=== PATIENT | male | born 1980 | race Caucasian/White ===

== ENCOUNTER 2022-01-22 08:55 | Emergency (ER) | payer OTHER ==
[2022-01-22] MEDS ORDERED: Furosemide 100mg/10 ml Vial ONE (09:08)
[2022-01-22] MEDS ORDERED: Nitrostat 0.4 MG (ED) SL ONE (09:09)
--- NOTE | 2022-01-22 09:15 | ERPHSYRPT ---
- History of Present Illness Time Seen by Provider: 01/22/22 09:10 Source: patient Exam Limitations: no limitations Patient Subjective Stated Complaint: SOB Triage Nursing Assessment: Patient ambulated back to ED and transferred self to bed. Patient A+O X3. Patient's skin pink, warm and dry. Patient complains of SOB that has increased over the past month. Patient has dx of CHF. Lungs noted to be diminished throughout. Patient has 2+ pitting edema noted to BLE with redness noted. Patient complains of general discomfort 5/10. Physician History: 41 years old male with history of hypertension, hyperlipidemia, CHF presented to the ER with 2 weeks history of increasing shortness of breath and bilateral lower extremity swelling despite taking oral Lasix as recommended. Patient reports shortness of breath gets worse with minimal activity and now having shortness of breath even resting with chest tightness and pressure across. Minimal nonproductive cough. Legs feel very tight bilaterally with dull aching pain. Timing/Duration: week(s) (4), gradual onset, worse Activities at Onset: activity, rest Severity of Dyspnea-Max: moderate Severity of Dyspnea-Current: moderate Modifying Factors: Improves With: rest. Worsens With: activity Associated Symptoms: chest pain/discomfort, edema, heaviness Allergies/Adverse Reactions: shellfish derived Allergy (Verified 01/22/22 08:57) Hx Influenza Vaccination/Date Given: No Hx Pneumococcal Vaccination/Date Given: No Immunizations Up to Date: Yes Travel Risk - International Travel Have you traveled outside of the country in past 3 weeks: No - Coronavirus Screening Are you exhibiting any of the following symptoms?: No Close contact with a COVID-19 positive Pt in past 14-21 Days: No - Vaccine Status Have you recieved a Covid-19 vaccination: No - Review of Systems Constitutional: Fatigue Eyes: No Symptoms Ears, Nose, & Throat: No Symptoms Respiratory: Cough, Dyspnea, Dyspnea on Exertion (RAIN) Cardiac: Chest Pain, Edema, Orthopnea Abdominal/Gastrointestinal: No Symptoms Genitourinary Symptoms: No Symptoms Musculoskeletal: No Symptoms Skin: No Symptoms Neurological: No Symptoms Psychological: No Symptoms Endocrine: No Symptoms Hematologic/Lymphatic: No Symptoms Immunological/Allergic: No Symptoms - Past Medical History Neurological History: No Pertinent History ENT History: No Pertinent History Cardiac History: Congestive Heart Failure, Hypertension Respiratory History: No Pertinent History Endocrine Medical History: No Pertinent History Musculoskeletal History: No Pertinent History GI Medical History: No Pertinent History History: No Pertinent History Psycho-Social History: No Pertinent History Male Reproductive Disorders: No Pertinent History - Past Surgical History Past Surgical History: No Neuro Surgical History: No Pertinent History Cardiac: No Pertinent History Respiratory: No Pertinent History Gastrointestinal: No Pertinent History Genitourinary: No Pertinent History Musculoskeletal: No Pertinent History Male Surgical History: No Pertinent History - Social History Smoking Status: Never smoker Exposure to second hand smoke: Yes Drug Use: none Patient Lives Alone: No - Nursing Vital Signs Nursing Vital Signs: Initial Vital Signs Temperature 97.3 F 01/22/22 08:59 Pulse Rate 108 H 01/22/22 08:59 Respiratory Rate 35 H 01/22/22 08:59 Blood Pressure 194/125 01/22/22 08:59 O2 Sat by Pulse Oximetry 95 01/22/22 08:59 Pain Scale Pain Intensity 3 - Physical Exam General Appearance: no apparent distress, alert Eye Exam: PERRL/EOMI, eyes nml inspection Ears, Nose, Throat Exam: hearing grossly normal, normal ENT inspection, normal p harynx Neck Exam: normal inspection, supple, full range of motion Respiratory Exam: diminished breath sounds, rhonchi Cardiovascular/Chest Exam: normal heart sounds, regular rate/rhythm, edema Abdominal/Gastrointestinal Exam: soft, normal bowel sounds, No tenderness Extremity Exam: normal range of motion, pedal edema, swelling Neurologic Exam: alert, oriented x 3, cooperative Skin Exam: normal color SpO2 Interpretation: normal SpO2: 95 O2 Delivery: Room Air - Course EKG Interpreted by Me: RATE (103), NORMAL AXIS, prolonged QT interval, Non- specific ST Changes Ordered Tests: Active Orders 24 hr Category Date Time Status Roll Tension Tester STAT Care 01/22/22 09:12 Completed EKG-ER Only STAT Care 01/22/22 09:11 Completed Willis [Catheter-Fowler Willis] STAT Care 01/22/22 11:33 Completed IV Insertion STAT Care 01/22/22 09:11 Completed Oxygen-ED Only Nasal Cannula 2 lpm Care 01/22/22 09:11 Completed CHEST 1 VIEW (PORTABLE) Stat Exams 01/22/22 09:11 Completed CBC W DIFF Stat Lab 01/22/22 09:10 Completed CMP Stat Lab 01/22/22 09:10 Completed Lactic Acid Stat Lab 01/22/22 09:11 Completed MAGNESIUM Stat Lab 01/22/22 09:10 Completed Manual Differential NC Stat Lab 01/22/22 09:10 Completed NT PRO BNP Stat Lab 01/22/22 09:10 Completed TROPONIN Q3H Lab 01/22/22 09:10 Completed Respiratory Therapy Assessment DAILY RT 01/22/22 09:29 Completed Medication Summary Discontinued Medications Generic Name Dose Route Start Last Admin Trade Name Freq PRN Reason Stop Dose Admin Albuterol/Ipratropium 3 ml 01/22/22 09:11 01/22/22 09:37 Ipratropium/Albuterol Sulfate 3 Ml Ampul.Neb IH 01/22/22 09:12 3 ml STAT ONE Administration Albuterol/Ipratropium Confirm 01/22/22 09:18 Ipratropium/Albuterol Sulfate 3 Ml Ampul.Neb Administered 01/22/22 09:19 Dose 3 ml IH .STK-MED ONE Aspirin 324 mg 01/22/22 10:15 01/22/22 10:19 Aspirin 81 Mg Tablet.Ec PO 01/22/22 10:16 324 mg 1XONLY ONE Administration Aspirin Confirm 01/22/22 10:14 Aspirin 81 Mg Tab.Chew Administered 01/22/22 10:15 Dose 324 mg .ROUTE .STK-MED ONE Furosemide Confirm 01/22/22 09:08 Furosemide 100 Mg/10 Ml Vial Administered 01/22/22 09:09 Dose 100 mg .ROUTE .STK-MED ONE Furosemide 60 mg 01/22/22 09:11 01/22/22 09:16 Furosemide 40 Mg/4 Ml Vial IV 01/22/22 09:12 60 mg STAT ONE Administration Nitroglycerin/Dextrose Confirm 01/22/22 11:37 Ntg 0.2mg/Ml In D5w Glass Administered 01/22/22 11:38 Dose 250 mls @ ud IV .STK-MED ONE Nitroglycerin/Dextrose 250 mls @ 1.5 mls/hr 01/22/22 11:41 01/22/22 12:25 Ntg 0.2mg/Ml In D5w Glass IV 02/21/22 11:40 5 mcg/min .Q24H PRN 1.5 mls/hr CHEST PAIN Administration Protocol 5 MCG/MIN Morphine Sulfate Confirm 01/22/22 11:41 Morphine Sulfate 4 Mg/Ml Injection Administered 01/22/22 11:42 Dose 4 mg .ROUTE .STK-MED ONE Morphine Sulfate 4 mg 01/22/22 11:54 01/22/22 12:02 Morphine Sulfate 4 Mg/Ml Injection IV 01/22/22 11:55 4 mg STAT ONE Administration Nitroglycerin Confirm 01/22/22 09:09 Nitroglycerin 0.4 Mg (Ed) 0.4 Mg Tab.Subl Administered 01/22/22 09:10 Dose 0.4 mg SL .STK-MED ONE Nitroglycerin 0.4 mg 01/22/22 09:16 01/22/22 09:17 Nitroglycerin 0.4 Mg (Ed) 0.4 Mg Tab.Subl SL 01/22/22 09:17 0.4 mg STAT ONE Administration Nitroglycerin Confirm 01/22/22 10:14 Nitroglycerin 1 Gm Packet Administered 01/22/22 10:15 Dose 1 gm .ROUTE .STK-MED ONE Nitroglycerin 1 gm 01/22/22 10:16 01/22/22 10:19 Nitroglycerin 1 Gm Packet TOP 01/22/22 10:17 1 gm STAT ONE Administration Nitroglycerin 1 gm 01/22/22 10:17 01/22/22 10:19 Nitroglycerin 1 Gm Packet TOP 01/22/22 10:18 Not Given STAT ONE Ondansetron HCl Confirm 01/22/22 11:41 Ondansetron Hcl 4 Mg/2 Ml Vial Administered 01/22/22 11:42 Dose 4 mg .ROUTE .STK-MED ONE Ondansetron HCl 4 mg 01/22/22 11:54 01/22/22 12:01 Ondansetron Hcl 4 Mg/2 Ml Vial IV 01/22/22 11:55 4 mg STAT ONE Administration Lab/Rad Data: Laboratory Result Diagrams 01/22/22 09:10 01/22/22 09:10 Laboratory Results 01/22/22 01/22/22 01/22/22 Range/Units 09:11 09:10 09:10 WBC (4.0-10.5) K/mm3 RBC (4.1-5.6) M/mm3 Hgb (12.5-18.0) gm/dl Hct (42-50) % MCV (78-100) fl MCH (26-32) pg MCHC (32-36) g/dl RDW (11.5-14.0) % Plt Count (150-450) K/mm3 MPV (7.5-11.0) fl Segmented Neutrophils (36.-66.) % Lymphocytes (Manual) (24-44) % Monocytes (Manual) (0.0-12.0) % Eosinophils (Manual) (0.00-3.0) % Platelet Estimate (NORMAL) RBC Morphology Polychromasia Sodium 140 (137-145) mmol/L Potassium 4.2 (3.5-5.1) mmol/L Chloride 103 (98-107) mmol/L Carbon Dioxide 28 (22-30) mmol/L Anion Gap 13.3 (5-15) MEQ/L BUN 12 (9-20) mg/dL Creatinine 0.70 (0.66-1.25) mg/dL Estimated GFR > 60.0 ML/MIN Glucose 106 (74-106) mg/dL Lactic Acid 1.2 (0.4-2.0) Calcium 8.6 (8.4-10.2) mg/dL Magnesium 1.9 (1.6-2.3) mg/dL Total Bilirubin 0.70 (0.2-1.3) mg/dL AST 37 (17-59) U/L ALT 42 (0-50) U/L Alkaline Phosphatase 137 H (38-126) U/L Troponin I 0.068 H* (0.000-0.034) ng/mL NT-Pro-B Natriuret Pep 458 H (0-450) pg/mL Serum Total Protein 7.6 (6.3-8.2) g/dL Albumin 4.0 (3.5-5.0) g/dL Urinalys Dipstick Clnc Urine Color (YELLOW) Urine Appearance (CLEAR) Urine pH (5-6) Ur Specific Pollock (1.005-1.025) POC Urine Protein Conf (Negative) Urine Ketones (NEGATIVE) Urine Nitrite (NEGATIVE) Urine Bilirubin (NEGATIVE) Urine Urobilinogen (0-1) mg/dL Urine Leukocytes (NEGATIVE) Urine WBC (Auto) (0-5) /HPF Urine RBC (Auto) (0-2) /HPF U Epithel Cells (Auto) (FEW) /HPF Urine Bacteria (Auto) (NEGATIVE) /HPF Urine RBC (0-5) Kamron/ul Ur Culture Indicated? Urine Glucose (NEGATIVE) mg/dL 01/22/22 01/22/22 Range/Units 09:10 09:10 WBC 10.3 (4.0-10.5) K/mm3 RBC 5.26 (4.1-5.6) M/mm3 Hgb 14.2 (12.5-18.0) gm/dl Hct 45.3 (42-50) % MCV 86.1 (78-100) fl MCH 27.0 (26-32) pg MCHC 31.3 L (32-36) g/dl RDW 14.9 H (11.5-14.0) % Plt Count 292 (150-450) K/mm3 MPV 10.3 (7.5-11.0) fl Segmented Neutrophils 74 H (36.-66.) % Lymphocytes (Manual) 12 L (24-44) % Monocytes (Manual) 7 (0.0-12.0) % Eosinophils (Manual) 7 H (0.00-3.0) % Platelet Estimate NORMAL (NORMAL) RBC Morphology ABNORMAL Polychromasia RARE Sodium (137-145) mmol/L Potassium (3.5-5.1) mmol/L Chloride (98-107) mmol/L Carbon Dioxide (22-30) mmol/L Anion Gap (5-15) MEQ/L BUN (9-20) mg/dL Creatinine (0.66-1.25) mg/dL Estimated GFR ML/MIN Glucose (74-106) mg/dL Lactic Acid (0.4-2.0) Calcium (8.4-10.2) mg/dL Magnesium (1.6-2.3) mg/dL Total Bilirubin (0.2-1.3) mg/dL AST (17-59) U/L ALT (0-50) U/L Alkaline Phosphatase (38-126) U/L Troponin I (0.000-0.034) ng/mL NT-Pro-B Natriuret Pep (0-450) pg/mL Serum Total Protein (6.3-8.2) g/dL Albumin (3.5-5.0) g/dL Urinalys Dipstick Clnc MAIN LAB Urine Color YELLOW (YELLOW) Urine Appearance CLEAR (CLEAR) Urine pH 7.0 (5-6) Ur Specific Pollock 1.010 (1.005-1.025) POC Urine Protein Conf NEGATIVE (Negative) Urine Ketones NEGATIVE (NEGATIVE) Urine Nitrite NEGATIVE (NEGATIVE) Urine Bilirubin NEGATIVE (NEGATIVE) Urine Urobilinogen 0.2 (0-1) mg/dL Urine Leukocytes NEGATIVE (NEGATIVE) Urine WBC (Auto) 0-2 (0-5) /HPF Urine RBC (Auto) NONE (0-2) /HPF U Epithel Cells (Auto) NONE (FEW) /HPF Urine Bacteria (Auto) NONE (NEGATIVE) /HPF Urine RBC NEGATIVE (0-5) Kamron/ul Ur Culture Indicated? NO Urine Glucose NEGATIVE (NEGATIVE) mg/dL - Progress Progress: improved Air Movement: fair Progress Note: 01/22/22 11:17 41 years old is evaluated for increasing swelling bilateral lower extremity with shortness of breath exertional dyspnea and orthopnea. EKG showed sinus tach without any ST elevation, given sublingual nitro with Nitropaste and 60 mg IV Lasix and patient has almost 3 L output. Feeling improvement in chest tightness and pressure but not completely resolved. Initial troponins are 0.068, . Discussed with Dr. Haney who is covering for Dr. Staton, recommended transfer to facility with cardiology services. I have discussed with Dr. Frias at [facility], reviewed history, work-up and current management, agreed with transfer. Blood Culture(s) Obtained: No Antibiotics given: No Discussed with : Sheba, Other (Dr. Frias) Will see patient in: ED Counseled pt/family regarding: lab results, diagnosis, need for follow-up, rad results - Departure Departure Disposition: Transfer Clinical Impression: Acute exacerbation of CHF (congestive heart failure) Condition: Stable Critical Care Time: No Referrals: RADHA ROSENTHAL [Primary Care Provider] - Follow up/PCP as directed Instructions: Heart Failure
[2022-01-22] MEDS: Lasix 40 MG/4 ML IV ONE (09:16)
[2022-01-22] MEDS: Nitrostat 0.4 MG (ED) SL ONE (09:17)
[2022-01-22] MEDS ORDERED: DUONEB 0.5-3 MG/3 ml Neb IH ONE (09:18)
[2022-01-22] MEDS: DUONEB 0.5-3 MG/3 ml Neb IH ONE (09:37)
[2022-01-22 09:40] LABS: Hematocrit 45.3 % (42-50); Hemoglobin 14.2 gm/dl (12.5-18.0); Mean Cell Volume 86.1 fl (78-100); Mean Corpuscular Hgb Concent. 31.3 g/dl (32-36); Mean Platelet Volume 10.3 fl (7.5-11.0); Platelet Count 292 K/mm3 (150-450); Red Blood Count 5.26 M/mm3 (4.1-5.6); Red Cell Distribution Width 14.9 % (11.5-14.0); White Blood Count 10.3 K/mm3 (4.0-10.5)
--- NOTE | 2022-01-22 09:47 | XRAY ---
Indication: Short of breath. CHF. Comparison: None Portable apical lordotic chest does not completely include left costophrenic angle. Borderline cardiomegaly with central vascular prominence. No focal infiltrate, consolidation, or large effusion. Bony thorax intact. Impression: Nonacute limited chest.
[2022-01-22 10:01] LABS: ALKALINE PHOSPHATASE 137 U/L (38-126); ANION GAP 13.3 MEQ/L (5-15); BLOOD UREA NITROGEN 12 mg/dL (9-20); CHLORIDE 103 mmol/L (98-107); Calcium 8.6 mg/dL (8.4-10.2); Carbon Dioxide 28 mmol/L (22-30); EST GLOMERULAR FILTRATION RATE > 60.0 ML/MIN; Glucose 106 mg/dL (74-106); MAGNESIUM 1.9 mg/dL (1.6-2.3); NT PRO BNP 458 pg/mL (0-450); Potassium 4.2 mmol/L (3.5-5.1); SGOT/AST 37 U/L (17-59); SGPT/ALT 42 U/L (0-50); SODIUM 140 mmol/L (137-145); Total Protein 7.6 g/dL (6.3-8.2)
[2022-01-22 10:04] LABS: Appearance CLEAR (CLEAR); Bilirubin NEGATIVE (NEGATIVE); Glucose NEGATIVE (NEGATIVE); Ketones NEGATIVE (NEGATIVE); WBC 0-2 /HPF (0-5)
[2022-01-22 10:05] LABS: Dipstick done @ ? MAIN LAB; Nitrite NEGATIVE (NEGATIVE); Protein,Urine Dip NEGATIVE (Negative); RBC NEGATIVE Ery/ul (0-5); Urobilinogen 0.2 mg/dL (0-1)
[2022-01-22] MEDS ORDERED: NITRO-BID 2% UD PACKETS ONE (10:14)
[2022-01-22] MEDS ORDERED: BABY ASPIRIN 81 MG CHEW ONE (10:14)
[2022-01-22] MEDS: ECOTRIN 81 MG PO ONE (10:19)
[2022-01-22] MEDS: NITRO-BID 2% UD PACKETS TOP ONE ×2 (10:19)
[2022-01-22 11:01] LABS: Eosinophil 7 % (0.00-3.0); Lymphocytes 12 % (24-44); Monocyte 7 % (0.0-12.0); Neutrophils 74 % (36.-66.); Polychromasia RARE; Total Cells Counted 100
[2022-01-22 11:02] LABS: Platelet Estimate NORMAL (NORMAL)
[2022-01-22] MEDS ORDERED: Ntg 0.2MG/Ml in D5W GLASS*** 250 ML IV ONE (11:37)
[2022-01-22] MEDS ORDERED: Zofran 4 MG/2 ML VIAL ONE (11:41)
[2022-01-22] MEDS ORDERED: MORPHINE SULFATE 4 MG INJ ONE (11:41)
[2022-01-22] MEDS: Zofran 4 MG/2 ML VIAL IV ONE (12:01)
[2022-01-22 12:02] VITALS: BP 168/81; PULSE 102
[2022-01-22] MEDS: MORPHINE SULFATE 4 MG INJ IV ONE (12:02)
[2022-01-22 12:03] VITALS: O2SAT 95
[2022-01-22] MEDS: Ntg 0.2MG/Ml in D5W GLASS*** 250 ML IV PRN (12:25)
== END 2022-01-22 12:26 | disposition short-term general hospital (02) ==
LOC: ED 08:55
DX: I11.0 Hypertensive heart disease with heart failure (principal); I50.9 Heart failure, unspecified; R77.8 Other specified abnormalities of plasma proteins; R06.02 Shortness of breath; R60.0 Localized edema; R07.9 Chest pain, unspecified; E78.5 Hyperlipidemia, unspecified
CPT/HCPCS: 36000; 36415; 51702; 71045; 80053; 81015; 83605; 83735; 83880; 84484; 85025; 93005; 93041; 94640; 96374; 96375; 99285; J1940; J2270; J2405; A9270-GY

== ENCOUNTER 2025-01-01 22:17 | Emergency (ER) | payer MEDICAID, OTHER ==
[2025-01-01 22:40] VITALS: TEMP 98.4
[2025-01-01 23:07] LABS: Absolute Neutrophil Ct (ANC) 7.66 x10^3/uL (1.78-5.38); BASOPHIL % 0.5 % (0.2-1.2); Basophil (Absolute #) 0.04 x10^3/uL (0.01-0.08); Eosinophil (Absolute #) 0 x10^3/uL (0.04-0.54); Hematocrit 40.7 % (40.1-51.0); Hemoglobin 13.2 g/dL (13.7-17.5); IMMATURE GRAN # 0.13 x10^3u/L (0.001-0.031); IMMATURE GRAN % 1.5 % (0.001-0.429); Lymphocytes % 2.3 % (21.8-53.1); Mean Cell Volume 80.6 fL (79.0-92.2); Mean Corpuscular Hemoglobin 26.1 pg (25.7-32.2); Mean Corpuscular Hgb Concent. 32.4 g/dL (32.3-36.5); Mean Platelet Volume 10.5 fL (9.4-12.4); Monocytes % 5.9 % (5.3-12.2); Neutrophil % 89.8 % (34.0-67.9); Platelet Count 163 x10^3/uL (163-337); Red Blood Count 5.05 x10^6/uL (4.63-6.08); Red Cell Distribution Width 15.2 % (11.6-14.4); White Blood Count 8.5 x10^3/uL (4.23-9.07)
[2025-01-01 23:13] LABS: ALBUMIN 3.3 g/dL (3.5-5.0); ANION GAP 14.9 MEQ/L (5-15); Calcium 7.9 mg/dL (8.4-10.2); Creatinine 1 1.21 mg/dL (0.66-1.25); EST GLOMERULAR FILTRATION RATE 76.2 ML/MIN; Potassium 4.2 mmol/L (3.5-5.1); Total Protein 6.6 g/dL (6.3-8.2)
--- NOTE | 2025-01-01 23:27 | ERPHSYRPT ---
- History of Present Illness Time Seen by Provider: 01/01/25 23:22 Source: patient Exam Limitations: no limitations Patient Subjective Stated Complaint: c/o left leg swelling, SOB, body aches, urinary retention Triage Nursing Assessment: Patient brought to ED by father with c/o of left leg swelling, body aches, shortness of breath, and decreased urination. patient states that symptoms started 4 days ago, he went to [facility] last night and was discharged last night. Left leg is swollen, red, and hot to touch. There is a weeping wound on the lateral side of the left lower leg that has a bandage covering it. There is a 2cm x 7cm intact lesion and a 1cm x 1cm lesions present. Patient states the pain 10/10 in bilat. knees and left leg. patient also has 10/10 right shoulder pain due family trying to move patient out of bed. tachycar dic, 92% on RA, brought in by W/C. Physician History: 44-year-old male history of congestive heart failure sleep apnea, BMI of 64 presents to emergency department for evaluation of generalized bodyaches, fever, intermittent diaphoresis that has been ongoing for approximately 3 to 4 days. Patient went to [facility] yesterday for the same. Patient was worked up including a CTA of his chest which was negative. Cardiac enzymes were negative. Patient had a slight tachycardia at that time of 110. Influenza negative. Patient was diagnosed with a viral syndrome and discharged home. Over the course of the past 24 hours patient symptoms worsen. Father states now the left leg appears to be red and tender. This was not the case last night. The left leg is swollen. Patient has a resting tachycardia of 126. Patient complains of shortness of breath. Patient appears to have a venous stasis ulcer on the lateral aspect of the left leg. Patient brought to ED by father with c/o of left leg swelling, body aches, shortness of breath, and decreased urination. patient states that symptoms started 4 days ago, he went to [facility] last night and was discharged last night. Left leg is swollen, red, and hot to touch. There is a weeping wound on the lateral side of the left lower leg that has a bandage covering it. There is a 2cm x 7cm intact lesion and a 1cm x 1cm lesions present. Patient states the pain 10/10 in bilat. knees and left leg. patient also has 10/10 right shoulder pain due family trying to move patient out of bed. tachycardic, 92% on RA, brought in by W/C. Timing/Duration: today Severity: moderate Associated Symptoms: denies symptoms Allergies/Adverse Reactions: shellfish derived Allergy (Verified 01/01/25 22:40) Home Medications: Albuterol Sulfate [Proair Respiclick] 90 mcg IH DAILY PRN PRN 01/01/25 [History] Amlodipine Besylate 5 mg [Norvasc 5 mg] 5 mg PO DAILY 01/01/25 [History] Carvedilol 12.5 mg [Coreg 12.5 mg] 12.5 mg PO BID 01/01/25 [History] Furosemide 40 mg [Lasix 40 MG] 40 mg PO DAILY 01/01/25 [History] Oxycodone HCl/Acetaminophen [Oxycodone-Acetaminophen 5-325] 1 tab PO Q6H PRN PRN 01/01/25 [History] Paroxetine HCl [Paroxetine ER] 75 mg PO DAILY 01/01/25 [History] Potassium Chloride 20 meq PO DAILY 01/01/25 [History] hydroCHLOROthiazide [Hydrochlorothiazide] 25 mg PO DAILY 01/01/25 [History] lisinopriL [Lisinopril] 40 mg PO DAILY 01/01/25 [History] Hx Tetanus, Diphtheria Vaccination/Date Given: Yes Hx Influenza Vaccination/Date Given: No Hx Pneumococcal Vaccination/Date Given: No Travel Risk - International Travel Have you traveled outside of the country in past 3 weeks: No - Emerging Infectious Disease Are you exhibiting symptoms associated with any current EIDs: Yes Symptoms: Fever, Headaches/Body Aches/, Shortness of Breath - Review of Systems Constitutional: No Symptoms, No Fever, No Chills Eyes: No Symptoms Ears, Nose, & Throat: No Symptoms Respiratory: No Symptoms, No Cough, No Dyspnea Cardiac: No Symptoms, No Chest Pain, No Edema, No Syncope Abdominal/Gastrointestinal: No Symptoms, No Abdominal Pain, No Nausea, No Vomiting, No Diarrhea Genitourinary Symptoms: No Symptoms, No Dysuria Musculoskeletal: No Symptoms, No Back Pain, No Neck Pain Skin: No Rash Neurological: No Symptoms, No Dizziness, No Focal Weakness, No Sensory Changes Psychological: No Symptoms Endocrine: No Symptoms Hematologic/Lymphatic: No Symptoms Immunological/Allergic: No Symptoms All Other Systems: Reviewed and Negative - Past Medical History Neurological History: No Pertinent History ENT History: No Pertinent History Cardiac History: Congestive Heart Failure, Hypertension Respiratory History: No Pertinent History, COPD Endocrine Medical History: No Pertinent History Musculoskeletal History: No Pertinent History GI Medical History: No Pertinent History History: No Pertinent History Psycho-Social History: No Pertinent History Male Reproductive Disorders: No Pertinent History Other Medical History: traumatic brain injury, prediabetic, sleep apnea, decreased ejection fraction (Patient states around 40) - Past Surgical History Past Surgical History: No Neuro Surgical History: No Pertinent History Cardiac: No Pertinent History Respiratory: No Pertinent History Gastrointestinal: No Pertinent History Genitourinary: No Pertinent History Musculoskeletal: No Pertinent History Male Surgical History: No Pertinent History - Social History Smoking Status: Never smoker Exposure to second hand smoke: Yes Drug Use: none - Social Determinants of Health Will the patient participate in the screening: Yes Do you worry about a steady place to live?: No Do you have any problems with any of the following?: No known problems In the past 12 months,have you had to go without utilities?: No Transportation Issues: No Has anyone in your support network made you feel unsafe?: No Have you or anyone in your house had to go w/o enough food: No - Nursing Vital Signs Nursing Vital Signs: Initial Vital Signs Temperature 98.4 F 01/01/25 22:24 Pulse Rate 134 H 01/01/25 22:24 Respiratory Rate 28 H 01/01/25 22:24 Blood Pressure 157/82 01/01/25 22:24 O2 Sat by Pulse Oximetry 92 L 01/01/25 22:24 Pain Scale Pain Intensity 8 - Physical Exam General Appearance: no apparent distress, alert Eye Exam: PERRL/EOMI, eyes nml inspection Ears, Nose, Throat Exam: normal ENT inspection, pharynx normal, moist mucous membranes Neck Exam: normal inspection, non-tender, supple, full range of motion Respiratory Exam: normal breath sounds, lungs clear, No respiratory distress Cardiovascular Exam: regular rate/rhythm, normal heart sounds, normal peripheral pulses Gastrointestinal/Abdomen Exam: soft, normal bowel sounds, No tenderness, No mass Back Exam: normal inspection, normal range of motion, No CVA tenderness, No vertebral tenderness Extremity Exam: normal inspection, normal range of motion, pelvis stable Neurologic Exam: alert, oriented x 3, cooperative, normal mood/affect, sensation nml, No motor deficits Skin Exam: normal color, warm, dry, No rash Lymphatic Exam: No adenopathy SpO2 Interpretation: normal SpO2: 92 O2 Delivery: Room Air - Course Nursing assessment & vital signs reviewed: Yes EKG Interpreted by Me: RATE (126), Sinus Tach, NORMAL AXIS, NORMAL INTERVALS, NORMAL QRS Ordered Tests: Active Orders 24 hr Category Date Time Status Supervisor Pipelines STAT Care 01/01/25 23:02 Completed EKG-ER Only STAT Care 01/01/25 23:01 Completed IV Insertion STAT Care 01/01/25 22:51 Completed IV Insertion STAT Care 01/01/25 23:01 Completed Pulse Oximetry (ED) STAT Care 01/01/25 23:01 Completed BLOOD CULTURE Stat Lab 01/01/25 23:02 Received CBC W DIFF Stat Lab 01/01/25 23:04 Completed CK (IN-HOUSE) [CK-Creatinine Phosphokinase] Stat Lab 01/01/25 23:05 Completed CMP Stat Lab 01/01/25 23:04 Completed Lactic Acid Stat Lab 01/01/25 23:25 Completed MAG [MAGNESIUM] Stat Lab 01/01/25 23:05 Completed TROPONIN Q4H Lab 01/01/25 23:05 Completed UA W/RFX UR CULTURE Stat Lab 01/01/25 23:02 Ordered Medication Summary Discontinued Medications Generic Name Dose Route Start Last Admin Trade Name Freq PRN Reason Stop Dose Admin Vancomycin HCl 1 gm in 200 mls @ 125 mls/hr 01/01/25 23:52 01/02/25 03:39 Vancomycin 1 Gram/200 Ml Bag IV 01/02/25 01:27 Infused STAT ONE Infusion Piperacillin Sod/Tazobactam 100 mls @ 200 mls/hr 01/01/25 23:53 01/02/25 00:53 Sod 3.375 gm/ Sodium Chloride IV 01/02/25 00:22 Infused STAT ONE Infusion Sodium Chloride Confirm 01/02/25 00:00 Sodium Chloride 100ml Mini-Bag Plus Administered 01/02/25 00:01 Dose 100 mls @ ud IV .STK-MED ONE Sodium Chloride 1,000 mls @ 250 mls/hr 01/02/25 00:30 01/02/25 00:50 Sodium Chloride 0.9% 1000 Ml IV 02/01/25 00:29 250 mls/hr .Q4H CHELLE Administration Sodium Chloride Confirm 01/02/25 00:35 Sodium Chloride 0.9% 1000 Ml Administered 01/02/25 00:36 Dose 1,000 mls @ ud .ROUTE .STK-MED ONE Ketorolac Tromethamine 30 mg 01/01/25 23:52 01/02/25 00:02 Ketorolac Tromethamine 30 Mg/Ml Inj IV 01/01/25 23:53 30 mg STAT ONE Administration Ketorolac Tromethamine Confirm 01/01/25 23:59 Ketorolac Tromethamine 30 Mg/Ml Inj Administered 01/02/25 00:00 Dose 30 mg .ROUTE .STK-MED ONE Morphine Sulfate 2 mg 01/02/25 03:26 01/02/25 03:32 Morphine Sulfate 2 Mg/Ml Inj IV 01/02/25 03:27 2 mg STAT ONE Administration Morphine Sulfate Confirm 01/02/25 03:31 Morphine Sulfate 2 Mg/Ml Inj Administered 01/02/25 03:32 Dose 2 mg .ROUTE .STK-MED ONE Piperacillin Sod/Tazobactam Sod Confirm 01/01/25 23:59 Piperacillin/Tazobactam Sodium 3.375 Gm Vial Administered 01/02/25 00:00 Dose 3.375 gm IV .STK-MED ONE Lab/Rad Data: Laboratory Result Diagrams 01/01/25 23:04 01/01/25 23:04 Laboratory Results 01/01/25 01/01/25 01/01/25 Range/Units 23:29 23:25 23:05 WBC (4.23-9.07) x10^3/uL RBC (4.63-6.08) x10^6/uL Hgb (13.7-17.5) g/dL Hct (40.1-51.0) % MCV (79.0-92.2) fL MCH (25.7-32.2) pg MCHC (32.3-36.5) g/dL RDW (11.6-14.4) % Plt Count (163-337) x10^3/uL MPV (9.4-12.4) fL Gran % (34.0-67.9) % Immature Gran % (Auto) (0.001-0.429) % Nucleat RBC Rel Count (0.00-0.2) % Eos # (Auto) (0.04-0.54) x10^3/uL Immature Gran # (Auto) (0.001-0.031) x10^3u/L Absolute Lymphs (auto) (1.32-3.57) x10^3/uL Absolute Monos (auto) (0.30-0.82) x10^3/uL Absolute Nucleated RBC (0.00-0.012) x10^3u/L Lymphocytes % (21.8-53.1) % Monocytes % (5.3-12.2) % Eosinophils % (0.8-7.0) % Basophils % (0.2-1.2) % Absolute Granulocytes (1.78-5.38) x10^3/uL Basophils # (0.01-0.08) x10^3/uL Sodium (135-145) mmol/L Potassium (3.5-5.1) mmol/L Chloride (98-107) mmol/L Carbon Dioxide (22-30) mmol/L Anion Gap (5-15) MEQ/L BUN (9-20) mg/dL Creatinine (0.66-1.25) mg/dL Estimated GFR ML/MIN Glucose (74-106) mg/dL Lactic Acid 2.3 H (0.4-2.0) Calcium (8.4-10.2) mg/dL Magnesium (1.6-2.3) mg/dL Total Bilirubin (0.2-1.3) mg/dL AST (17-59) U/L ALT (0-50) U/L Alkaline Phosphatase (38-126) U/L Creatine Kinase 163 (55-170) U/L Troponin I (0.000-0.033) ng/mL Serum Total Protein (6.3-8.2) g/dL Albumin (3.5-5.0) g/dL Influenza Type A Ag NEGATIVE (NEGATIVE) Influenza Type B Ag NEGATIVE (NEGATIVE) RSV (PCR) NEGATIVE (NEGATIVE) SARS-CoV-2 (PCR) NEGATIVE (NEGATIVE) 01/01/25 01/01/25 01/01/25 Range/Units 23:05 23:05 23:04 WBC (4.23-9.07) x10^3/uL RBC (4.63-6.08) x10^6/uL Hgb (13.7-17.5) g/dL Hct (40.1-51.0) % MCV (79.0-92.2) fL MCH (25.7-32.2) pg MCHC (32.3-36.5) g/dL RDW (11.6-14.4) % Plt Count (163-337) x10^3/uL MPV (9.4-12.4) fL Gran % (34.0-67.9) % Immature Gran % (Auto) (0.001-0.429) % Nucleat RBC Rel Count (0.00-0.2) % Eos # (Auto) (0.04-0.54) x10^3/uL Immature Gran # (Auto) (0.001-0.031) x10^3u/L Absolute Lymphs (auto) (1.32-3.57) x10^3/uL Absolute Monos (auto) (0.30-0.82) x10^3/uL Absolute Nucleated RBC (0.00-0.012) x10^3u/L Lymphocytes % (21.8-53.1) % Monocytes % (5.3-12.2) % Eosinophils % (0.8-7.0) % Basophils % (0.2-1.2) % Absolute Granulocytes (1.78-5.38) x10^3/uL Basophils # (0.01-0.08) x10^3/uL Sodium 128 L (135-145) mmol/L Potassium 4.2 (3.5-5.1) mmol/L Chloride 91 L (98-107) mmol/L Carbon Dioxide 27 (22-30) mmol/L Anion Gap 14.9 (5-15) MEQ/L BUN 25 H (9-20) mg/dL Creatinine 1.21 (0.66-1.25) mg/dL Estimated GFR 76.2 ML/MIN Glucose 199 H (74-106) mg/dL Lactic Acid (0.4-2.0) Calcium 7.9 L (8.4-10.2) mg/dL Magnesium 1.7 (1.6-2.3) mg/dL Total Bilirubin 4.00 H (0.2-1.3) mg/dL AST 92 H (17-59) U/L ALT 67 H (0-50) U/L Alkaline Phosphatase 142 H (38-126) U/L Creatine Kinase (55-170) U/L Troponin I 0.015 (0.000-0.033) ng/mL Serum Total Protein 6.6 (6.3-8.2) g/dL Albumin 3.3 L (3.5-5.0) g/dL Influenza Type A Ag (NEGATIVE) Influenza Type B Ag (NEGATIVE) RSV (PCR) (NEGATIVE) SARS-CoV-2 (PCR) (NEGATIVE) 01/01/25 Range/Units 23:04 WBC 8.5 (4.23-9.07) x10^3/uL RBC 5.05 (4.63-6.08) x10^6/uL Hgb 13.2 L (13.7-17.5) g/dL Hct 40.7 (40.1-51.0) % MCV 80.6 (79.0-92.2) fL MCH 26.1 (25.7-32.2) pg MCHC 32.4 (32.3-36.5) g/dL RDW 15.2 H (11.6-14.4) % Plt Count 163 (163-337) x10^3/uL MPV 10.5 (9.4-12.4) fL Gran % 89.8 H (34.0-67.9) % Immature Gran % (Auto) 1.5 H (0.001-0.429) % Nucleat RBC Rel Count 0.0 (0.00-0.2) % Eos # (Auto) 0 L (0.04-0.54) x10^3/uL Immature Gran # (Auto) 0.13 H (0.001-0.031) x10^3u/L Absolute Lymphs (auto) 0.20 L (1.32-3.57) x10^3/uL Absolute Monos (auto) 0.50 (0.30-0.82) x10^3/uL Absolute Nucleated RBC 0.00 (0.00-0.012) x10^3u/L Lymphocytes % 2.3 L (21.8-53.1) % Monocytes % 5.9 (5.3-12.2) % Eosinophils % 0.0 L (0.8-7.0) % Basophils % 0.5 (0.2-1.2) % Absolute Granulocytes 7.66 H (1.78-5.38) x10^3/uL Basophils # 0.04 (0.01-0.08) x10^3/uL Sodium (135-145) mmol/L Potassium (3.5-5.1) mmol/L Chloride (98-107) mmol/L Carbon Dioxide (22-30) mmol/L Anion Gap (5-15) MEQ/L BUN (9-20) mg/dL Creatinine (0.66-1.25) mg/dL Estimated GFR ML/MIN Glucose (74-106) mg/dL Lactic Acid (0.4-2.0) Calcium (8.4-10.2) mg/dL Magnesium (1.6-2.3) mg/dL Total Bilirubin (0.2-1.3) mg/dL AST (17-59) U/L ALT (0-50) U/L Alkaline Phosphatase (38-126) U/L Creatine Kinase (55-170) U/L Troponin I (0.000-0.033) ng/mL Serum Total Protein (6.3-8.2) g/dL Albumin (3.5-5.0) g/dL Influenza Type A Ag (NEGATIVE) Influenza Type B Ag (NEGATIVE) RSV (PCR) (NEGATIVE) SARS-CoV-2 (PCR) (NEGATIVE) - Progress Progress: improved Progress Note: 01/02/25 00:11 I discussed the case with Dr. Pradhan in detail regarding the patient's sepsis is need for IV fluids history of CHF in addition to the need for a CT of the lower extremity which we cannot do here at [facility] due to weight limitations. We will transfer patient to [facility] for further evaluation and treatment. 01/02/25 01:[address] Ma and hospitalist at [facility]. They cannot accommodate our patient because there CT scanner capacity is 450 pounds 01/02/25 01:39 I spoke with hospitalist at [address] accepts transfer. We spoke at 1:39 AM 44-year-old male presents to our ED for evaluation of fever, intermittent d iaphoresis generalized bodyaches left leg pain and swelling. Physical exam reveals redness swelling cellulitis of left lower extremity. Cellulitis is circumferential. Lactic acid 2.3. Patient tachycardic at 120s. Impression is sepsis from left leg cellulitis. Blood cultures obtained. Antibiotics initiated. Sodium 128. IV fluids administered as well. Morphine and Toradol administered for pain control. Portions of this note were created with voice recognition technology. There may be grammatical, spelling, punctuation or sound alike errors Complexity of problem addressed is moderate acute complicated. No critical care time. Complex of data reviewed and analyzed is extensive. Test ordered chest reviewed results analyzed and correlated clinically with history and physical exam. I reviewed the documentation from patient's visit to [facility] yesterday. Management discussed with our hospitalist hospitalist at [facility] and hospitalist at [address] Risk of complication and or risk of morbidity/mortality of patient management is high. Patient requires transfer to higher level of care. Vital stable. Time spent to transfer patient is approximately 20 minutes. Plan of care established for shared decision making. No social determinants of health present to impede follow-up. Portions of this note were created with voice recognition technology. There may be grammatical, spelling, punctuation or sound alike errors 01/02/25 04:18 01/02/25 04:20 Counseled pt/family regarding: lab results, diagnosis - Departure Departure Disposition: Transfer Clinical Impression: Sepsis, Left leg cellulitis, Total bilirubin, elevated, Hyponatremia, Lactic acidosis Condition: Stable Critical Care Time: No Referrals: MARCELINO JOYCE [Primary Care Provider] - Follow up/PCP as directed
[2025-01-01] MEDS ORDERED: TORAdol 30 mg Injection ONE (23:59)
[2025-01-01] MEDS ORDERED: PIPERACILLIN/TAZOBACTAM IV ONE (23:59)
[2025-01-02] MEDS ORDERED: Sodium Chloride 100ML MINI-BAG PLUS 100 ML IV ONE
[2025-01-02] MEDS: TORAdol 30 mg Injection IV ONE (00:02)
[2025-01-02] MEDS: PIPERACILLIN/TAZOBACTAM 3.375 GM in Sodium Chloride 100ML MINI-BAG PLUS 100 ML IV ONE (00:03)
[2025-01-02 00:08] LABS: INFLUENZA A NEGATIVE (NEGATIVE); INFLUENZA B NEGATIVE (NEGATIVE); RESPIRATORY SYNCTIAL VIRUS NEGATIVE (NEGATIVE); SARS-CoV-2 Xpert Express NEGATIVE (NEGATIVE)
[2025-01-02] MEDS ORDERED: Sodium Chloride 0.9% 1000 ML 1,000 ML ONE (00:35)
[2025-01-02] MEDS: Sodium Chloride 0.9% 1000 ML 1,000 ML IV SCH (00:50)
[2025-01-02] MEDS: VANCOMYCIN 1 GRAM/200 ML BAG 1 GM/200 ML PIGGYBACK IV ONE (01:15)
[2025-01-02] MEDS ORDERED: MORPHINE SULFATE 2 MG INJ ONE (03:31)
[2025-01-02] MEDS: MORPHINE SULFATE 2 MG INJ IV ONE (03:32)
[2025-01-02 03:38] VITALS: BP 135/85; PULSE 133; RESP 24
[2025-01-02 04:23] VITALS: O2SAT 92
== END 2025-01-02 03:45 | disposition short-term general hospital (02) ==
LOC: ED 22:17
DX: A41.9 Sepsis, unspecified organism (principal); L03.116 Cellulitis of left lower limb; E80.6 Other disorders of bilirubin metabolism; E87.1 Hypo-osmolality and hyponatremia; E87.20 Acidosis, unspecified; R50.9 Fever, unspecified; M79.10 Myalgia, unspecified site; I11.0 Hypertensive heart disease with heart failure; I50.9 Heart failure, unspecified; Z79.891 Long term (current) use of opiate analgesic; Z79.899 Other long term (current) drug therapy
CPT/HCPCS: 0241U; 36415; 80053; 82550; 83605; 83735; 84484; 85025; 87040; 87077; 93005; 93041; 94760; 96366; 96367; 96375; 99285; 96374; J1885; J2270; J3370

== ENCOUNTER 2025-01-21 20:25 | Observation (INO) | payer OTHER ==
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
[2025-01-21 22:46] LABS: Absolute Neutrophil Ct (ANC) 4.68 x10^3/uL (1.78-5.38); BASOPHIL % 1.5 % (0.2-1.2); Basophil (Absolute #) 0.11 x10^3/uL (0.01-0.08); Eosinophil % 5.7 % (0.8-7.0); Eosinophil (Absolute #) 0.41 x10^3/uL (0.04-0.54); Hematocrit 34.4 % (40.1-51.0); Hemoglobin 10.6 g/dL (13.7-17.5); IMMATURE GRAN # 0.03 x10^3u/L (0.001-0.031); IMMATURE GRAN % 0.4 % (0.001-0.429); Mean Cell Volume 85.4 fL (79.0-92.2); Mean Corpuscular Hemoglobin 26.3 pg (25.7-32.2); Mean Corpuscular Hgb Concent. 30.8 g/dL (32.3-36.5); Mean Platelet Volume 8.9 fL (9.4-12.4); Monocyte (Absolute #) 0.71 x10^3/uL (0.30-0.82); Monocytes % 9.8 % (5.3-12.2); Neutrophil % 64.6 % (34.0-67.9); Platelet Count 437 x10^3/uL (163-337); Red Blood Count 4.03 x10^6/uL (4.63-6.08); Red Cell Distribution Width 15.6 % (11.6-14.4); White Blood Count 7.2 x10^3/uL (4.23-9.07)
[2025-01-21 23:00] LABS: ALBUMIN 3.8 g/dL (3.5-5.0); ANION GAP 7.9 MEQ/L (5-15); BILIRUBIN,TOTAL 1.3 mg/dL (0.2-1.3); Calcium 8.6 mg/dL (8.4-10.2); Creatinine 1 0.92 mg/dL (0.66-1.25); EST GLOMERULAR FILTRATION RATE 105.9 ML/MIN; Potassium 4.2 mmol/L (3.5-5.1); Total Protein 8.9 g/dL (6.3-8.2)
[2025-01-21] MEDS ORDERED: Merrem IV ONE (23:42)
[2025-01-21] MEDS ORDERED: Sodium Chloride 100ML MINI-BAG PLUS 100 ML IV ONE (23:42)
[2025-01-21] MEDS: Merrem 1 GM in Sodium Chloride 100ML MINI-BAG PLUS 100 ML IV ONE (23:51)
[2025-01-22] MEDS ORDERED: TYLENOL 325 MG PO PRN (00:55)
[2025-01-22] MEDS ORDERED: Zofran 4 MG/2 ML VIAL IV PRN (00:55)
[2025-01-22] MEDS ORDERED: Docusate Sodium 100 MG PO PRN (01:31)
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
[2025-01-22 04:55] LABS: Absolute Neutrophil Ct (ANC) 4.49 x10^3/uL (1.78-5.38); BASOPHIL % 1.4 % (0.2-1.2); Eosinophil % 5.9 % (0.8-7.0); Eosinophil (Absolute #) 0.41 x10^3/uL (0.04-0.54); Hematocrit 35.9 % (40.1-51.0); IMMATURE GRAN # 0.04 x10^3u/L (0.001-0.031); IMMATURE GRAN % 0.6 % (0.001-0.429); Lymphocyte (Absolute #) 1.25 x10^3/uL (1.32-3.57); Lymphocytes % 17.9 % (21.8-53.1); Mean Cell Volume 86.7 fL (79.0-92.2); Mean Corpuscular Hemoglobin 26.6 pg (25.7-32.2); Mean Corpuscular Hgb Concent. 30.6 g/dL (32.3-36.5); Mean Platelet Volume 8.6 fL (9.4-12.4); Monocyte (Absolute #) 0.71 x10^3/uL (0.30-0.82); Monocytes % 10.1 % (5.3-12.2); Neutrophil % 64.1 % (34.0-67.9); Platelet Count 427 x10^3/uL (163-337); Red Blood Count 4.14 x10^6/uL (4.63-6.08); Red Cell Distribution Width 15.8 % (11.6-14.4)
[2025-01-22 05:22] LABS: ANION GAP 12.2 MEQ/L (5-15); BILIRUBIN,TOTAL 1.4 mg/dL (0.2-1.3); Calcium 8.7 mg/dL (8.4-10.2); Creatinine 1 1.03 mg/dL (0.66-1.25); EST GLOMERULAR FILTRATION RATE 92.4 ML/MIN; Potassium 3.8 mmol/L (3.5-5.1); Total Protein 9.2 g/dL (6.3-8.2)
[2025-01-22] MEDS ORDERED: Sodium Chloride 100ML MINI-BAG PLUS 100 ML IV ONE (06:21)
[2025-01-22] MEDS ORDERED: Merrem IV ONE (06:21)
[2025-01-22] MEDS: Merrem 1 GM in Sodium Chloride 100ML MINI-BAG PLUS 100 ML IV SCH (06:23)
[2025-01-22] MEDS ORDERED: VENTOLIN COMMON CANISTER IH PRN (07:12)
[2025-01-22] MEDS: VANCOMYCIN 1 GRAM/200 ML BAG 1 GM/200 ML PIGGYBACK IV SCH (08:17)
[2025-01-22] MEDS: hydroDIURIL 25 MG PO SCH (09:28)
[2025-01-22] MEDS: COREG 12.5 MG PO SCH (09:28)
[2025-01-22] MEDS: NORVASC 5 MG PO SCH (09:28)
[2025-01-22] MEDS: ENOXAPARIN SODIUM SQ SCH (09:28)
[2025-01-22] MEDS: Lasix 40 MG PO SCH (09:28)
[2025-01-22] MEDS: Apresoline 25 MG TABLET PO SCH (09:28)
[2025-01-22] MEDS: Acidophilus TABLET PO SCH (09:28)
[2025-01-22] MEDS: PAROXETINE ER 12.5 MG TABLET PO SCH (09:29)
--- NOTE | 2025-01-22 11:33 | PCM.NOTE ---
Date and Time: 01/22/25 1116 Subjective Assessment: 01/22/25 is a 44 year old male with a history of lymphedema, chronic venous stasis, hypertension, depression, CHF, COPD, sleep apnea, and recent left leg cellulitis (recently seen in ED and transferred to [facility] for CT scan and US, placed on IV antibiotics, and discharged on 01/11/25 on dicloxacillin). Pt presents back to the hospital on 01/21/25 with worsening left leg erythema. Failing OP antibiotics. He has completed his last day of that antibiotic and he has cellulitis that is slightly increased of his left lower extremity. He says that the erythema now has extended proximally to involve the upper/inner left thigh but does not involve the scrotum. He denies fevers or chills. Labs overall look ok. Will continue IV merrem, lasix, and oral narcotic pain control for cellulitis. Podiatry ordered a venous duplex. Pt would like to wear a CPAP while here. He states he has obstructive sleep apnea and had a sleep study 2 years ago but never received the machine. Will have pt f/u with his PCP OP regarding this. He is also asking for Ortho to see him IP for a possible rotater cuff concern. He states he was to have an appointment with them today. Explained he would need to f/u OP with Ortho and his appointment was rescheduled for him. Pt denies any further concerns at this time. - Review of Systems Constitutional: No Fever, No Chills Eyes: No Symptoms Ears, Nose, & Throat: No Symptoms Respiratory: No Cough, No Short Of Breath Cardiac: No Chest Pain, No Edema, No Syncope Abdominal/Gastrointestinal: No Abdominal Pain, No Nausea, No Vomiting, No Diarrhea Genitourinary Symptoms: No Dysuria Musculoskeletal: No Back Pain, No Neck Pain Skin: Cellulitis (improving today from yesterday Left leg), No Rash Neurological: No Dizziness, No Focal Weakness, No Sensory Changes Psychological: No Symptoms Endocrine: No Symptoms Hematologic/Lymphatic: No Symptoms Immunological/Allergic: No Symptoms Objective Exam General Appearance: no apparent distress, alert, obese Neurologic Exam: alert, oriented x 3, cooperative, normal mood/affect, nml cerebellar function, sensation nml, No motor deficits Skin Exam: normal color, warm, dry, other (cellulitis Left leg from mid-thigh down- improved from yesterday per markings on leg) Wound Assessment: Skin/Wound Assessment Wound/Incision Assessment Start: 01/22/25 00:00 Text: Status: Active Freq: Q6H Protocol: Document 01/22/25 08:00 AR (Rec: 01/22/25 10:09 AR [id number]) Wound/Incision Assessment Left Other Wound Assessment Shift Assessment Wound Type cellulitis Surrounding Tissue Dark Red Eye Exam: PERRL, EOMI, eyes nml inspection Ears, Nose, Throat Exam: normal ENT inspection, pharynx normal, moist mucous membranes Neck Exam: normal inspection, non-tender, supple, full range of motion Respiratory Exam: normal breath sounds, lungs clear, No respiratory distress Cardiovascular Exam: regular rate/rhythm, normal heart sounds Gastrointestinal/Abdomen Exam: soft, No tenderness, No mass Extremity Exam: normal inspection, normal range of motion Back Exam: normal inspection, normal range of motion, No CVA tenderness, No vertebral tenderness Male Genitalia Exam: deferred Rectal Exam: deferred Objective Data Vital Signs: Vital Signs - 24 hr Temp Pulse Resp BP BP Pulse Ox 01/22/25 07:43 98.2 F 62 22 124/76 94 L 01/22/25 04:00 97.7 F 80 23 132/63 92 L 01/22/25 01:18 97.7 F 80 23 132/63 92 L 01/22/25 00:31 78 19 149/76 89 L 01/22/25 00:00 79 27 H 127/68 85 L 01/21/25 23:58 78 21 145/67 91 L 01/21/25 23:51 95 01/21/25 23:32 78 29 H 78/66 90 L 01/21/25 23:01 82 24 153/77 90 L 01/21/25 23:00 78 14 93 L 01/21/25 22:50 78 24 91 L 01/21/25 22:43 92 L 01/21/25 22:40 81 19 93 L 01/21/25 22:33 83 22 92 L 01/21/25 22:18 84 23 100/85 90 L 01/21/25 22:10 83 25 H 100/85 90 L 01/21/25 22:05 81 27 H 92 L 01/21/25 21:36 99 F 88 27 H 162/87 95 Pain Assessment - Last Documented Pain Intensity 8 Intake and Output: Intake & Output 01/19/25 01/20/25 01/21/25 01/22/25 11:59 11:59 11:59 11:59 Intake Total 360 Balance 360 Weight 223.2 kg Lab Results: Lab Results-Last 24 Hours 01/21/25 01/21/25 01/21/25 Range/Units 22:20 22:30 22:30 WBC 7.2 (4.23-9.07) x10^3/uL RBC 4.03 L (4.63-6.08) x10^6/uL Hgb 10.6 L (13.7-17.5) g/dL Hct 34.4 L (40.1-51.0) % MCV 85.4 (79.0-92.2) fL MCH 26.3 (25.7-32.2) pg MCHC 30.8 L (32.3-36.5) g/dL RDW 15.6 H (11.6-14.4) % Plt Count 437 H (163-337) x10^3/uL MPV 8.9 L (9.4-12.4) fL Gran % 64.6 (34.0-67.9) % Immature Gran % (Auto) 0.4 (0.001-0.429) % Nucleat RBC Rel Count 0.0 (0.00-0.2) % Eos # (Auto) 0.41 (0.04-0.54) x10^3/uL Immature Gran # (Auto) 0.03 (0.001-0.031) x10^3u/L Absolute Lymphs (auto) 1.30 L (1.32-3.57) x10^3/uL Absolute Monos (auto) 0.71 (0.30-0.82) x10^3/uL Absolute Nucleated RBC 0.00 (0.00-0.012) x10^3u/L Lymphocytes % 18.0 L (21.8-53.1) % Monocytes % 9.8 (5.3-12.2) % Eosinophils % 5.7 (0.8-7.0) % Basophils % 1.5 H (0.2-1.2) % Absolute Granulocytes 4.68 (1.78-5.38) x10^3/uL Basophils # 0.11 H (0.01-0.08) x10^3/uL Sodium 136 (135-145) mmol/L Potassium 4.2 (3.5-5.1) mmol/L Chloride 94 L (98-107) mmol/L Carbon Dioxide 38 H (22-30) mmol/L Anion Gap 7.9 (5-15) MEQ/L BUN 15 (9-20) mg/dL Creatinine 0.92 (0.66-1.25) mg/dL Estimated GFR 105.9 ML/MIN Glucose 115 H (74-106) mg/dL Lactic Acid 0.9 (0.4-2.0) Calcium 8.6 (8.4-10.2) mg/dL Total Bilirubin 1.30 (0.2-1.3) mg/dL AST 49 (17-59) U/L ALT 42 (0-50) U/L Alkaline Phosphatase 155 H (38-126) U/L NT-Pro-B Natriuret Pep (<300) pg/mL Serum Total Protein 8.9 H (6.3-8.2) g/dL Albumin 3.8 (3.5-5.0) g/dL Procalcitonin (0.030-0.080) ng/mL 01/21/25 01/22/25 01/22/25 Range/Units 22:30 04:50 04:50 WBC 7.0 (4.23-9.07) x10^3/uL RBC 4.14 L (4.63-6.08) x10^6/uL Hgb 11.0 L (13.7-17.5) g/dL Hct 35.9 L (40.1-51.0) % MCV 86.7 (79.0-92.2) fL MCH 26.6 (25.7-32.2) pg MCHC 30.6 L (32.3-36.5) g/dL RDW 15.8 H (11.6-14.4) % Plt Count 427 H (163-337) x10^3/uL MPV 8.6 L (9.4-12.4) fL Gran % 64.1 (34.0-67.9) % Immature Gran % (Auto) 0.6 H (0.001-0.429) % Nucleat RBC Rel Count 0.0 (0.00-0.2) % Eos # (Auto) 0.41 (0.04-0.54) x10^3/uL Immature Gran # (Auto) 0.04 H (0.001-0.031) x10^3u/L Absolute Lymphs (auto) 1.25 L (1.32-3.57) x10^3/uL Absolute Monos (auto) 0.71 (0.30-0.82) x10^3/uL Absolute Nucleated RBC 0.00 (0.00-0.012) x10^3u/L Lymphocytes % 17.9 L (21.8-53.1) % Monocytes % 10.1 (5.3-12.2) % Eosinophils % 5.9 (0.8-7.0) % Basophils % 1.4 H (0.2-1.2) % Absolute Granulocytes 4.49 (1.78-5.38) x10^3/uL Basophils # 0.10 H (0.01-0.08) x10^3/uL Sodium 138 (135-145) mmol/L Potassium 3.8 (3.5-5.1) mmol/L Chloride 92 L (98-107) mmol/L Carbon Dioxide 38 H (22-30) mmol/L Anion Gap 12.2 (5-15) MEQ/L BUN 16 (9-20) mg/dL Creatinine 1.03 (0.66-1.25) mg/dL Estimated GFR 92.4 ML/MIN Glucose 125 H (74-106) mg/dL Lactic Acid (0.4-2.0) Calcium 8.7 (8.4-10.2) mg/dL Total Bilirubin 1.40 H (0.2-1.3) mg/dL AST 46 (17-59) U/L ALT 43 (0-50) U/L Alkaline Phosphatase 160 H (38-126) U/L NT-Pro-B Natriuret Pep 169 (<300) pg/mL Serum Total Protein 9.2 H (6.3-8.2) g/dL Albumin 4.0 (3.5-5.0) g/dL Procalcitonin 0.111 H (0.030-0.080) ng/mL Radiology Exams: Radiology Procedures Category Date Time Status VENOUS UNILAT/LIMITED EXTREMIT [US] Urgent Exams 01/22/25 09:03 Ordered Assessment/Plan (1) Left leg cellulitis Current Visit: Yes Status: Acute Assessment & Plan: -IV antibiotic - Podiatry evaluation - Monitor response to treatment. - Patient and family aware that ID consultants are not available at [facility] and if the patient does not respond to IV antibiotics, may require transfer for ID assessment. - CBC, CMP reviewed - venous duplex - BC x2 pending Code(s): L03.116 - CELLULITIS OF LEFT LOWER LIMB (2) Obstructive sleep apnea Current Visit: Yes Status: Chronic Assessment & Plan: - Agreeable to wear CPAP here. - F/U OP with PCP about receiving CPAP machine for home use. pt states last sleep study was 2 years ago but never received machine - Co2 38 Code(s): G47.33 - OBSTRUCTIVE SLEEP APNEA (ADULT) (PEDIATRIC) (3) Chronic venous stasis dermatitis of both lower extremities Current Visit: Yes Status: Chronic Assessment & Plan: -Follow exam. Skin care. Code(s): I87.2 - VENOUS INSUFFICIENCY (CHRONIC) (PERIPHERAL) (4) Lymphedema of left leg Current Visit: Yes Status: Chronic Assessment & Plan: - Monitor volume status. Continue diuretic. Code(s): I89.0 - LYMPHEDEMA, NOT ELSEWHERE CLASSIFIED (5) Morbid obesity with BMI of 60.0-69.9, adult Current Visit: Yes Status: Chronic Assessment & Plan: - Advised diet and exercise control VTE: Lovenox PPI: Protonix Next of KIN: Frankie Mchugh [phone] D/C plan: 1-2 days Code status:Full Code(s): E66.01 - MORBID (SEVERE) OBESITY DUE TO EXCESS CALORIES; Z68.44 - BODY MASS INDEX [BMI] 60.0-69.9, ADULT
[2025-01-22] MEDS: NORCO 5/325 MG PO PRN (11:35)
--- NOTE | 2025-01-22 12:30 | XRAY ---
Indication: Cellulitis. Swelling. Two-dimensional sonogram and color Doppler imaging major venous vessels left leg performed. Comparison: None No thrombus seen in the examined deep venous vessels left leg including greater saphenous vein. Veins demonstrate normal compressibility. Venous waveforms are normal with and without augmentation. Impression: Left leg negative for DVT.
[2025-01-22] MEDS: Protonix 20MG Tablet PO SCH (12:34)
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
[2025-01-23 06:00] LABS: Hematocrit 35.5 % (40.1-51.0); Hemoglobin 10.9 g/dL (13.7-17.5); Mean Cell Volume 85.3 fL (79.0-92.2); Mean Corpuscular Hemoglobin 26.2 pg (25.7-32.2); Mean Corpuscular Hgb Concent. 30.7 g/dL (32.3-36.5); Platelet Count 388 x10^3/uL (163-337); Red Blood Count 4.16 x10^6/uL (4.63-6.08); Red Cell Distribution Width 15.7 % (11.6-14.4); White Blood Count 6.4 x10^3/uL (4.23-9.07)
[2025-01-23 06:12] LABS: ALBUMIN 3.9 g/dL (3.5-5.0); ANION GAP 10.7 MEQ/L (5-15); BILIRUBIN,TOTAL 1.4 mg/dL (0.2-1.3); Calcium 8.7 mg/dL (8.4-10.2); Creatinine 1 0.93 mg/dL (0.66-1.25); EST GLOMERULAR FILTRATION RATE 104.5 ML/MIN; Potassium 4.1 mmol/L (3.5-5.1); Total Protein 9.2 g/dL (6.3-8.2)
[2025-01-23 07:29] VITALS: RESP 16
[2025-01-23 11:49] VITALS: BP 135/63; PULSE 69; TEMP 97.9; O2SAT 93
--- NOTE | 2025-01-23 13:22 | PCM.DS ---
Discharge Summary Date of Admission: 01/22/25 00:49 Date of Discharge: 01/23/25 Admitting Physician: RANDY BRAN MD Consults: Consults on Case 01/21/25 23:50 Consult Podiatry ROUTINE Primary Care Provider: MARCELINO JOYCE Allergies Allergies shellfish derived Allergy (Verified 01/21/25 21:31) Hospital Summary - Hospital Course Hospital Course: 01/22/25 is a 44 year old male with a history of lymphedema, chronic venous stasis, hypertension, depression, CHF, COPD, sleep apnea, and recent left leg cellulitis (recently seen in ED and transferred to [facility] for CT scan and US, placed on IV antibiotics, and discharged on 01/11/25 on dicloxacillin). Pt presents back to the hospital on 01/21/25 with worsening left leg erythema. Failing OP antibiotics. He has completed his last day of that antibiotic and he has cellulitis that is slightly increased of his left lower extremity. He says that the erythema now has extended proximally to involve the upper/inner left thigh but does not involve the scrotum. He denies fevers or chills. Labs overall look ok. Will continue IV merrem, lasix, and oral narcotic pain control for cellulitis. Podiatry ordered a venous duplex. Pt would like to wear a CPAP while here. He states he has obstructive sleep apnea and had a sleep study 2 years ago but never received the machine. Will have pt f/u with his PCP OP regarding this. He is also asking for Ortho to see him IP for a possible rotater cuff concern. He states he was to have an appointment with them today. Explained he would need to f/u OP with Ortho and his appointment was rescheduled for him. Pt denies any further concerns at this time. 01/23/25 Pt resting in bed. BC x2 negative. He refused to wear cpap last night. He will need to f/u with PCP regarding sleep study as he is non-compliant here. Labs overall improved. Cellulitis improving. Venous Duplex negative for DVT. Will continue PO antibiotics OP. Appointments made OP to f/u with infectious disease and PCP. He denies CP, SOB, abd pain, N/V/D. - Vitals & Intake/Output Vital Signs: Vital Signs Temperature 97.9 F 01/23/25 11:48 Pulse Rate 69 01/23/25 11:48 Respiratory Rate 16 01/23/25 11:48 Blood Pressure 135/63 01/23/25 11:48 O2 Sat by Pulse Oximetry 93 L 01/23/25 11:48 Intake & Output: Intake & Output 01/21/25 01/22/25 01/23/25 01/24/25 11:59 11:59 11:59 11:59 Intake Total 360 1720 580 Balance 360 1720 580 Weight 223.2 kg - Lab Result Diagrams: 01/23/25 05:26 01/23/25 05:26 Lab Results-Last 24 Hrs: Lab Results-Last 24 Hours 01/23/25 01/23/25 Range/Units 05:26 05:26 WBC 6.4 (4.23-9.07) x10^3/uL RBC 4.16 L (4.63-6.08) x10^6/uL Hgb 10.9 L (13.7-17.5) g/dL Hct 35.5 L (40.1-51.0) % MCV 85.3 (79.0-92.2) fL MCH 26.2 (25.7-32.2) pg MCHC 30.7 L (32.3-36.5) g/dL RDW 15.7 H (11.6-14.4) % Plt Count 388 H (163-337) x10^3/uL MPV 9.0 L (9.4-12.4) fL Sodium 136 (135-145) mmol/L Potassium 4.1 (3.5-5.1) mmol/L Chloride 93 L (98-107) mmol/L Carbon Dioxide 37 H (22-30) mmol/L Anion Gap 10.7 (5-15) MEQ/L BUN 19 (9-20) mg/dL Creatinine 0.93 (0.66-1.25) mg/dL Estimated GFR 104.5 ML/MIN Glucose 110 H (74-106) mg/dL Calcium 8.7 (8.4-10.2) mg/dL Total Bilirubin 1.40 H (0.2-1.3) mg/dL AST 39 (17-59) U/L ALT 38 (0-50) U/L Alkaline Phosphatase 152 H (38-126) U/L Serum Total Protein 9.2 H (6.3-8.2) g/dL Albumin 3.9 (3.5-5.0) g/dL Micro Results-Entire Visit: Microbiology 01/21/25 22:40 Blood Culture - Preliminary Blood 01/21/25 22:30 Blood Culture - Preliminary Blood - Radiology Exams Ordered Rad Exams-Entire Visit: Radiology Procedures Category Date Time Status VENOUS UNILAT/LIMITED EXTREMIT [US] Urgent Exams 01/22/25 09:03 Completed - Procedures and Test Procedures and Tests throughout Hospitalization: Therapy Orders & Screens 01/22/25 11:32 RT Miscellaneous Order ROUTINE Comment: Physician Instructions: Reason For Exam: CPAP at HS Diagnosis: Left leg cellulitis 01/22/25 12:21 BiPap/CPAP ROUTINE Comment: Diagnosis: Left leg cellulitis Respiratory Therapy Assessment DAILY Comment: Diagnosis: Left leg cellulitis Discharge Exam General Appearance: no apparent distress, alert Neurologic Exam: alert, oriented x 3, cooperative, normal mood/affect, nml cerebellar function, sensation nml, No motor deficits Eye Exam: PERRL, EOMI, eyes nml inspection Ears, Nose, Throat Exam: normal ENT inspection, pharynx normal, moist mucous membranes Neck Exam: normal inspection, non-tender, supple, full range of motion Respiratory Exam: normal breath sounds, lungs clear, No respiratory distress Cardiovascular Exam: regular rate/rhythm, normal heart sounds Gastrointestinal/Abdomen Exam: soft, No tenderness, No mass Male Genitalia Exam: deferred Rectal Exam: deferred Back Exam: normal inspection, normal range of motion, No CVA tenderness, No vertebral tenderness Extremity Exam: normal inspection, normal range of motion, inflammation, tenderness (Left leg) Skin Exam: normal color, warm, dry Wound Assessment: Skin/Wound Assessment Wound/Incision Assessment Start: 01/22/25 00:00 Text: Status: Active Freq: Q6H Protocol: Document 01/23/25 08:00 AR (Rec: 01/23/25 10:18 AR [id number]) Wound/Incision Assessment Left Other Wound Assessment Shift Assessment Wound Type cellulitis General Appearance Reddened Comment unna boot placed on lower extremity, redness still noted to upper leg Final Diagnosis/Problem List - Final Discharge Diagnosis/Problem (1) Left leg cellulitis Current Visit: Yes Status: Acute Code(s): L03.116 - CELLULITIS OF LEFT LOWER LIMB (2) Obstructive sleep apnea Current Visit: Yes Status: Chronic Code(s): G47.33 - OBSTRUCTIVE SLEEP APNEA (ADULT) (PEDIATRIC) (3) Chronic venous stasis dermatitis of both lower extremities Current Visit: Yes Status: Chronic Code(s): I87.2 - VENOUS INSUFFICIENCY (CHRONIC) (PERIPHERAL) (4) Lymphedema of left leg Current Visit: Yes Status: Chronic Code(s): I89.0 - LYMPHEDEMA, NOT ELSEWHERE CLASSIFIED (5) Morbid obesity with BMI of 60.0-69.9, adult Current Visit: Yes Status: Chronic Assessment & Plan: (1) Left leg cellulitis Current Visit: Yes Status: Acute Assessment & Plan: -IV antibiotic - Podiatry evaluation - Monitor response to treatment. - Patient and family aware that ID consultants are not available at [facility] and if the patient does not respond to IV antibiotics, may require transfer for ID assessment. - CBC, CMP reviewed - venous duplex negative for DVT - BC x2 negative 01/23 - F/U with ID OP for multiple failed OP antibiotics for cellulitis - Podiatry note reviewed and agree with plan of care. - CBC, CMP reviewed Code(s): L03.116 - CELLULITIS OF LEFT LOWER LIMB (2) Obstructive sleep apnea Current Visit: Yes Status: Chronic Assessment & Plan: - Agreeable to wear CPAP here. - F/U OP with PCP about receiving CPAP machine for home use. pt states last sleep study was 2 years ago but never received machine - Co2 38 01/23 - refused CPAP last night - F/U with PCP for sleep study and cpap Code(s): G47.33 - OBSTRUCTIVE SLEEP APNEA (ADULT) (PEDIATRIC) (3) Chronic venous stasis dermatitis of both lower extremities Current Visit: Yes Status: Chronic Assessment & Plan: -Follow exam. Skin care. Code(s): I87.2 - VENOUS INSUFFICIENCY (CHRONIC) (PERIPHERAL) (4) Lymphedema of left leg Current Visit: Yes Status: Chronic Assessment & Plan: - Monitor volume status. Continue diuretic. Code(s): I89.0 - LYMPHEDEMA, NOT ELSEWHERE CLASSIFIED (5) Morbid obesity with BMI of 60.0-69.9, adult Current Visit: Yes Status: Chronic Assessment & Plan: - Advised diet and exercise control Code(s): E66.01 - MORBID (SEVERE) OBESITY DUE TO EXCESS CALORIES; Z68.44 - BODY MASS INDEX [BMI] 60.0-69.9, ADULT - Discharge Discharge Date: 01/23/25 Disposition: Home, Self-Care Condition: Fair Prescriptions: Continue Carvedilol 12.5 mg [Coreg 12.5 mg] 12.5 mg PO BID Paroxetine HCl [Paroxetine ER] 75 mg PO DAILY hydroCHLOROthiazide [Hydrochlorothiazide] 25 mg PO DAILY Amlodipine Besylate 5 mg [Norvasc 5 mg] 5 mg PO BID Furosemide 40 mg [Lasix 40 MG] 40 mg PO DAILY Albuterol Sulfate [Proair Respiclick] 90 mcg IH DAILY PRN PRN PRN Reason: Allergies HydrALAzine HCL 25 MG TAB [Apresoline 25 MG TABLET] 25 mg PO TID Discontinued Dicloxacillin Sodium 500 mg PO . Q6H FOR 10 DAYS Instructions: Cellulitis and erysipelas (skin infections), Cellulitis (skin infection) in adults - Discharge instructions Additional Instructions: If symptoms worsen please follow up with PCP or ER. Follow up with: MARCELINO JOYCE [Primary Care Provider] - 02/04/25 9:30 am OMARI BURCIAGA [NON-STAFF PHY W/O PRIVILEGES] - 01/31/25 2:30 pm FLOWER JONES MD [ACTIVE STAFF] - 01/28/25 2:00 pm
--- NOTE | 2025-01-24 07:11 | PCM.NOTE ---
Date and Time: 01/24/25 0710 Subjective Assessment: progressing without complication. TO D/c today with oral abx Physical Exam - Narrative Narrative Physical Exam: Podiatry Physical Exam Objective Data Vital Signs: Vital Signs - 24 hr Temp Pulse Resp BP Pulse Ox 01/23/25 11:48 97.9 F 69 16 135/63 93 L 01/23/25 07:27 97.8 F 68 16 127/59 91 L 01/23/25 07:22 70 24 91 L Pain Assessment - Last Documented Pain Intensity 8 Pain Scale Used 0-10 Pain Scale Intake and Output: Intake & Output 01/21/25 01/22/25 01/23/25 01/24/25 11:59 11:59 11:59 11:59 Intake Total 360 1720 580 Balance 360 1720 580 Weight 223.2 kg Radiology Exams: Radiology Procedures Category Date Time Status VENOUS UNILAT/LIMITED EXTREMIT [US] Urgent Exams 01/22/25 09:03 Completed Multi-Disciplinary Progress Notes: Multi-Disciplinary Progress Notes 01/23/25 14:59 Case Management Note by Angeli Moore S/Sam PATIENT- HE DENIES ANY NEW NEEDS AT TIME OF DC. PATIENT UP IN ROOM. NO DRESSING CHANGE OR HHC NEEDED AT THIS TIME. PATIENT AWARE. PATIENT PLANS TO DC HOME TO HIS PLF AT TIME OF DC Initialized on 01/23/25 14:59 - END OF NOTE 01/23/25 14:58 Case Management Note by Angeli Moore/Sam DAVILA IN DR. HANLEY'S OFFICE- D/T NO OPEN AREAS ON LEG -PATIENT WILL ONLY NEED UNNA BOOT CHANGED WEEKLY IN OFFICE. THEY WILL CHANGE IT TODAY PRIOR TO DC. PRIMARY RN NOTIFIED. [facility] REFERRAL CANCELLED Initialized on 01/23/25 14:58 - END OF NOTE 01/23/25 13:39 Case Management Note by Angeli Moore REFERRAL FAXED TO PENDING SALE TO [facility] FOR UNNA BOOT CARE- THEY ARE UNABLE TO SERVICES [facility] WILL SEND REFERRAL TO [facility] Initialized on 01/23/25 13:39 - END OF NOTE Assessment/Plan (1) Acute exacerbation of CHF (congestive heart failure) Status: Acute Code(s): I50.9 - HEART FAILURE, UNSPECIFIED (2) Left leg cellulitis Status: Acute Assessment & Plan: Significant improvement noted to cellulitis of the leg at this time. Venous Doppler ordered demonstrating negative for DVT to the left lower extremity Patient with recurrent cellulitis with a 4-week history and 2 hospitalizations. At this time recommend IV antibiotics medicine team managing at this time possible dieresis if patient is adequate candidate and compression therapy as patient has not tried this in previous visits to [facility]. Unna boot will be applied to the left lower extremity with moderate compression and will be changed 1 times weekly until cellulites resolved Will follow up outpatient. Code(s): L03.116 - CELLULITIS OF LEFT LOWER LIMB (3) Chronic venous stasis dermatitis of both lower extremities Status: Chronic Code(s): I87.2 - VENOUS INSUFFICIENCY (CHRONIC) (PERIPHERAL) (4) Morbid obesity with BMI of 60.0-69.9, adult Status: Chronic Code(s): E66.01 - MORBID (SEVERE) OBESITY DUE TO EXCESS CALORIES; Z68.44 - BODY MASS INDEX [BMI] 60.0-69.9, ADULT (5) Obstructive sleep apnea Status: Chronic Code(s): G47.33 - OBSTRUCTIVE SLEEP APNEA (ADULT) (PEDIATRIC)
== END 2025-01-23 16:07 | disposition home or self-care (01) ==
LOC: ED 20:25 → MED SURG 01-22 00:49
PROVIDERS: ADMIT Internal Medicine; ATTEND Internal Medicine
DX: L03.116 Cellulitis of left lower limb (principal); G47.33 Obstructive sleep apnea (adult) (pediatric); E87.1 Hypo-osmolality and hyponatremia; I87.2 Venous insufficiency (chronic) (peripheral); I89.0 Lymphedema, not elsewhere classified; I11.0 Hypertensive heart disease with heart failure; I50.9 Heart failure, unspecified; E66.01 Morbid (severe) obesity due to excess calories; F32.A Depression, unspecified; Z68.44 Body mass index [BMI] 60.0-69.9, adult; Z79.899 Other long term (current) drug therapy; Z87.820 Personal history of traumatic brain injury
CPT/HCPCS: 29580; 36415; 80053; 83605; 83880; 84145; 85025; 85027; 87040; 93971; 94760; 99222; 99285; G0378; Q3014; 99232; 99284; J1650; A9270-GY